=== PATIENT | female | born 1960 | race Caucasian/White ===

== ENCOUNTER 2025-10-11 06:07 | Day surgery (SDC) | payer BC, SELFPAY ==
[2025-09-22 11:34] LABS: Hematocrit 41.4 % (37.0-47.0); Hemoglobin 13.8 g/dL (12.0-16.0); Mean Corp Hgb Conc. 33.3 g/dL (33.0-37.0); Mean Corpuscular Volume 93.0 fL (81.0-99.0); Platelet Count 243 10^3/uL (130-400); Red Cell Dist. Width 12.6 % (11.5-14.5)
[2025-09-22 11:53] LABS: INR 0.99; PT 13.6 Sec (11.4-14.6)
[2025-09-22 11:54] LABS: APTT 30.4 Sec (23.4-35.0)
[2025-09-22 11:59] LABS: ALT (SGPT) 33 U/L (0-35); AST (SGOT) 31 U/L (14-36); Albumin 4.4 g/dl (3.5-5.0); Alkaline Phosphatase 67 U/L (38-126); Blood Urea Nitrogen 15 mg/dl (7-17); Calcium 10.4 mg/dl (8.4-10.2); Carbon Dioxide 29 mmol/L (22-30); Chloride 106 mmol/L (98-107); Glucose 83 mg/dl (70-99); Potassium 4.4 mmol/L (3.5-5.1); Sodium 138 mmol/L (135-145); Total Protein 7.5 g/dl (6.3-8.2); eGFR > 60.00
[2025-09-22 13:57] VITALS: BMI 33.9
[2025-10-11] VITALS (9 sets, daily range): BP systolic 82–138; BP diastolic 43–90; BMI 33.9
[2025-10-11] MEDS: TYLENOL 1000 MG PO (07:04)
[2025-10-11] MEDS: HEPARIN 5000 UNITS SC (07:04)
[2025-10-11] MEDS: NEURONTIN 300 MG PO (07:04)
[2025-10-11] MEDS: NORMOSOL-R/PLASMALYTE-A 1000 IV (07:07)
--- NOTE | 2025-10-11 09:33 | OR.RPT ---
Operative Report
Operative Report
DATE OF OPERATION: October 11, 2025
PREOPERATIVE DIAGNOSIS: Thyroid Nodule Single - E041
POSTOPERATIVE DIAGNOSIS: Same
SURGEON: Lauri Rios M.D.
OPERATION: Total Thyroidectomy - 04295
ANESTHESIA: GET
ESTIMATED BLOOD LOSS: 2 cc
DRAINS: None
SPECIMEN: total thyroid
FINDINGS: Mutinodular goiter
COMPLICATIONS: None
PROCEDURE:
The patient was taken to the operating room and placed in the usual supine position. After adequate general endotracheal anesthesia was established, the patient�s neck was extended, prepped, and draped in the typical sterile fashion. A 5 cm
transcervical incision was made two fingerbreadths above the sternal notch. The skin incision was made with the #15 blade, which was taken through the skin into the subcutaneous tissue. The underlying platysma muscle was divided, and subplatysmal
flaps were created superiorly to the thyroid cartilage and inferiorly to the sternal notch. Strap muscles were identified and at the midline.
Attention was turned to the patient�s right thyroid lobe. The right thyroid lobe was mobilized medially. During this process, the right middle thyroid vein and inferior thyroid artery were dissected and ligated with Ligasure. Next, the right
superior pole was taken down by dissecting and transecting the superior pole vessels with a Ligasure. The right thyroid lobe was mobilized medially. During this process, the right recurrent laryngeal nerve was identified and preserved throughout its
entire course. The right superior parathyroid gland was identified and preserved.
Attention was turned to the patient�s left thyroid lobe. The left thyroid lobe was mobilized medially. During this process, the left middle thyroid vein and inferior thyroid artery were dissected and ligated with Ligasure. Next, the left superior
pole was taken down by dissecting and transecting the superior pole vessels with a Ligasure. The left thyroid lobe was mobilized medially. During this process, the left recurrent laryngeal nerve was identified and preserved throughout its entire
course. The left superior parathyroid gland was identified and preserved. The thyroid was resected from the trachea and sent to the pathology department.
After achieving adequate hemostasis, the strap muscle was approximated with #3-0 Vicryl in a running fashion, and the platysma muscles were reapproximated with #3-0 Vicryl in an interrupted manner. The skin was then closed with #4-0 Monocryl in a
running subcuticular technique. Steri-strips and sterile dressings were applied. The patient tolerated the procedure well. The final instrument, needle, and sponge counts were correct.
== END 2025-10-11 11:35 | disposition home or self-care (01) ==
LOC: SDS 06:07
PROVIDERS: ATTENDING PHYSICIAN Surgery; FAMILY PHYSICIAN Family Medicine
DX: E04.2 Nontoxic multinodular goiter (principal); E21.0 Primary hyperparathyroidism
CPT/HCPCS: 60240; 80053; 85027; 85610; 85730; 88307; 93005

== ENCOUNTER 2025-10-13 15:10 | Emergency (ER) | payer BC, SELFPAY ==
[2025-10-13 15:12] VITALS: BP 148/87
[2025-10-13 15:38] LABS: Hematocrit 40.6 % (37.0-47.0); Hemoglobin 13.5 g/dL (12.0-16.0); Mean Corp Hgb Conc. 33.3 g/dL (33.0-37.0); Mean Corpuscular Volume 94.0 fL (81.0-99.0); Nucleated Red Blood Cells % 0 %; Platelet Count 218 10^3/uL (130-400); Red Cell Dist. Width 12.5 % (11.5-14.5)
[2025-10-13 16:01] LABS: ALT (SGPT) 22 U/L (0-35); AST (SGOT) 28 U/L (14-36); Albumin 4.2 g/dl (3.5-5.0); Alkaline Phosphatase 55 U/L (38-126); Blood Urea Nitrogen 15 mg/dl (7-17); Calcium 7.5 mg/dl (8.4-10.2); Carbon Dioxide 29 mmol/L (22-30); Chloride 105 mmol/L (98-107); Glucose 103 mg/dl (70-99); Potassium 3.6 mmol/L (3.5-5.1); Sodium 140 mmol/L (135-145); Total Protein 7.4 g/dl (6.3-8.2); eGFR > 60.00
[2025-10-13 16:52] VITALS: BP 136/85
[2025-10-13 17:00] VITALS: BP 141/85
[2025-10-13 17:40] VITALS: BMI 36.7
[2025-10-13 18:15] LABS: Troponin I 0.013 ng/ml
--- NOTE | 2025-10-13 18:41 | ED.GENMED ---
History of Present Illness
General
Chief Complaint: Chest Pain
Source: patient and significant other
Exam Limitations: none
Time Seen by Provider: 10/13/25 16:53
Nursing documentation reviewed up to this point in time: agreed with
History of Present Illness
History of Present Illness:
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
by her from home for evaluation of symptoms that started this morning. Patient reports that she initially noted some [id number] in her arms and hands. Patient reports that this afternoon she started to notice chest discomfort in the
center of her chest associated with some slight shortness of breath. Patient denies any pain in her back, neck, jaw. Patient denies any abdominal pain, nausea, vomiting, diaphoresis. Patient denies any difficulty swallowing. Patient denies any
recent fevers or chills. Patient reports that her surgical site appears to be healing well and she is without complaints in that regard. Patient states that she became particularly concerned about a possible PE, given her history and therefore she
decided to come to the emergency department for evaluation.
Past History
Past History
ED Past Medical History: Hypothyroidism, Other (IBS) and Other (PE)
ED Past Surgical History: Other (Thyroidectomy)
Social History
Tobacco: Non-smoker
Alcohol: None
Drug: None
Personal:
Review of Systems
Review of Systems
Allergies reviewed?: Yes
All Other Systems: ROS reviewed and negative except as documented in HPI and ROS
Constitutional: Reports no symptoms; Denies fever or chills
EENT: Reports no symptoms
Respiratory: Reports trouble breathing; Denies cough or hemoptysis
Cardiac: Denies chest pain
ABD/GI: Reports no symptoms
: Reports no symptoms
Musculoskeletal: Reports no symptoms
Skin: Reports no symptoms
Neurological: Reports no symptoms
Endocrine: Reports no symptoms
Hematologic/Lymphatic: Reports no symptoms
Psychiatric: Reports no symptoms
Phy Exam
General Physical Exam
General Presentation: well appearing and no apparent distress
General Skin: warm and dry
General Habitus: normal
General Mental: alert
General Hydration: appears well hydrated
ENT Exam
ENT Exam: EOMI, pharynx normal, neck supple and normocephalic
Eye Exam
Eye Exam: PERRL, cornea clear and conjunctiva normal
Cardiovascular Exam
Cardiovascular Exam: regular rate/rhythm, no edema, no murmur and normal peripheral pulses
Pulmonary Exam
Pulmonary Exam: lungs clear, no respiratory distress, no rales, no crackles, no rhonchi, no stridor, no wheezing and no cough
Gastrointestinal Exam
Gastrointestinal Exam: normal bowel sounds, non tender, soft, no organomegaly, no pulsatile mass and non distended
Neurological Exam
Neurological Exam: alert, oriented x3, no motor deficits and speech normal
Musculoskeletal Exam
Musculoskeletal Exam: full ROM and no edema
Skin Exam
Skin Exam: normal color, warm/dry, no rash, no petechia and other (incision to the anterior neck with steri-strips, wound appears clean, dry, and intact)
Psychiatric Exam
Psychiatric Exam: normal mood/affect
Scores
Heart Score for Chest Pain Patients
STEMI patient?: No
History: Slightly or Non-Suspicious
ECG: Normal
Age: >45 - <65 years
Risk Factors: 1 or 2 Risk Factors
Troponin: </= Normal Limit
Heart Score for Chest Pain Patients: 2
Heart Score Risk: 2.5% MACE over next 6 weeks
Course
Orders/Labs/Results
Orders:
Orders
10/13/25 15:16
Electrocardiogram (*1) Urgent
Reason for Study: Chest Pain
EKG- Treatment ONCE
10/13/25 15:20
Complete Blood Count/With Diff Urgent
Comprehensive Metabolic Panel Urgent
Free T4 Urgent
TSH Reflex To Free T4 Urgent
10/13/25 17:17
CT Chest PE Study Urgent
Comment:
Reason For Exam: chest pain/sob,recent thyroidectomy,hx of PE
10/13/25 17:39
Troponin I Urgent
Abnormal Lab Results
10/13/25
15:20
MCH 31.3 H pg
(27.0-31.0)
Absolute Monos (auto) 1.2 H 10^3/uL
(0.1-0.6)
Monocytes % 11.9 H %
(1.7-9.3)
Glucose 103 H mg/dl
(70-99)
Calcium 7.5 L mg/dl
(8.4-10.2)
TSH (Reflex) 0.23 L uIU/ml
(0.47-4.68)
10/13/25 15:20
10/13/25 15:20
Vital Signs
Initial and Last Documented VS:
Initial Vital Signs
Temp Pulse Resp BP Pulse Ox
98.2 F 86 16 148/87 98
10/13/25 15:12 10/13/25 15:12 10/13/25 15:12 10/13/25 15:12 10/13/25 15:12
Last Documented Vital Signs
Temp Pulse Resp BP Pulse Ox
98.1 F 81 23 144/83 96
10/13/25 19:59 10/13/25 20:00 10/13/25 20:00 10/13/25 19:59 10/13/25 20:00
*Pulse Oximetry
SaO2: 97
Oxygen Mode of Delivery: Room air
Patient hypoxic: no
*Critical Care Note
Total Time (30-74mins, 75-104mins- exclusive of procedures): Not Applicable
Update Note
Update Note:
Patient is a 65-year-old female presents to the emergency department for evaluation of chest pain and shortness of breath in the setting of a recent thyroidectomy performed 2 days ago. Patient also reports of paresthesias of her upper extremities.
On arrival, patient is mildly hypertensive, afebrile. On examination, the patient is very well-appearing, she is in no acute distress, she has normal cardiopulmonary exam, she is neurologically intact. EKG was obtained and demonstrates no acute
ischemic changes, no evidence of dysrhythmia. Labs were obtained and are notable for a negative troponin. Patient's calcium level is low however she has been prescribed calcium supplementation by her doctor already at is at the pharmacy waiting
for her to sisal picker. The remainder of her labs are nonactionable. A CT PE study was performed given the fact that the patient is high risk given her previous PE. This demonstrates no evidence of PE or other dangerous abnormality to account for the
patient's symptoms today. At this time, I do feel the patient is safe for discharge to home with instructions on supportive care measures, she will sisal picker her calcium and take it. 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
which she was encouraged to keep. Patient and her were educated on return precautions, they expressed understanding the plan and agreed.
ED Attending Note
-
Portions of this chart may have been created with voice recognition software.� Occasional wrong word or��sound alike� substitutions may have occurred due to the inherent limitations of voice recognition software.
Discharge Plan
Departure
Patient Disposition: Home (Routine Discharge)
Date of Disposition: 10/13/25
Time of Disposition: 20:26
Patient with high blood pressure during this ER visit?: Yes
Condition: Good
Covid-19: Not Applicable
Discharge Problem:
Chest pain, Paresthesias
Instructions: Hand Numbness, Chest Pain PCP Follow Up
Prescriptions:
No Action
ascorbic acid (vitamin C) [Vitamin C] 1,000 mg Tablet
1,000 mg PO DAILY
pantoprazole 40 mg Tablet,Delayed Release (Dr/Ec)
40 mg PO DAILY
lisinopril 10 mg Tablet
10 mg PO DAILY
montelukast 10 mg Tablet
10 mg PO HS
albuterol sulfate 90 mcg/actuation Hfa Aerosol Inhaler
2 puff INHALATION QID PRN (Reason: wheeze)
dicyclomine 10 mg Capsule
10 mg PO QID PRN (Reason: diverticulosis)
vitamin B complex [B Complex] Capsule
1 cap PO DAILY
budesonide-formoterol [Symbicort] 160-4.5 mcg/actuation Hfa Aerosol Inhaler
2 puff INHALATION DAILY
cholecalciferol (vitamin D3) [Vitamin D3] 50 mcg (2,000 unit) Tablet
50 mcg PO DAILY
Centrum Silver Women 8 mg iron-400 mcg-50 mcg Tablet
1 tab PO DAILY
Eliquis 2.5 mg Tablet
2.5 mg PO BID
lorazepam [Ativan] 0.5 mg Tablet
0.5 mg PO HS PRN (Reason: sleep)
Referrals:
Donte Fernandes DO [Family Provider, Family Practice] - Follow up in 2-3 days
Activity Restrictions/Additional Instructions:
You were seen in the emergency department for evaluation of chest pain and numbness and tingling in your arms. While you were in the emergency department your EKG did not show signs of a heart attack or dangerous heart rhythm. Your blood work did
show that your calcium level was low, please alert your solar photovoltaic crew lead and take your calcium supplementation as prescribed. The remainder of your blood work did not show any dangerous abnormalities. The scan of your chest showed no evidence of a
blood clot in your lungs or other dangerous abnormality. We feel it is safe for you to be discharged to home. You may take Tylenol 650 mg every 4-6 hours if needed for pain, not to exceed 3000 mg in any 24-hour period. Please follow-up your
doctor to ensure improvement in your symptoms. Please return to the emergency department if you develop worsening chest pain, shortness of breath or difficulty breathing, severe abdominal pain, persistent vomiting, fever greater than 100.4 �F, or
for any other worsening or concerning symptoms.
Interventions
Interventions:
*Risk Screen - Suicide Last Done: 10/13/25 15:12
*General Assessment Last Done: 10/13/25 15:12
*Neglect/Abuse Screening Last Done: 10/13/25 15:12
*ED COVID-19 Vaccine History Last Done: 10/13/25 15:12
*ED Influenza Vaccine History Last Done: 10/13/25 15:12
[facility] Fall Risk Assessment Tool Last Done: 10/13/25 17:41
*Nursing Disposition Last Done: 10/13/25 21:10
ED- Cardiac Assessment Last Done: 10/13/25 20:07
Discharge Date and Time
Discharge Date/Time: 10/13/25 21:46
Print Language: [place]
[2025-10-13 19:58] VITALS: BP 144/83
[2025-10-13 19:59] VITALS: BP 144/83
== END 2025-10-13 21:46 | disposition home or self-care (01) ==
LOC: EMR 15:10
PROVIDERS: Physician Assistant Medical; EMERGENCY PHYSICIAN Emergency Medicine; FAMILY PHYSICIAN Family Medicine
DX: R07.9 Chest pain, unspecified (principal); R20.2 Paresthesia of skin; R03.0 Elevated blood-pressure reading, without diagnosis of hypertension; E89.0 Postprocedural hypothyroidism; K58.9 Irritable bowel syndrome, unspecified; Z79.01 Long term (current) use of anticoagulants; Z86.711 Personal history of pulmonary embolism; Z86.718 Personal history of other venous thrombosis and embolism
CPT/HCPCS: 99284; 71275; 80053; 84439; 84443; 84484; 85025; 93005; Q9967